=== PATIENT | male | born 1970 | race Caucasian/White ===

== ENCOUNTER 2020-11-02 16:15 | Emergency (ER) | payer MEDICARE, OTHER ==
[~2020-11-02 16:15] MED LIST: AURYXIA210 MG PO; CIPRO500 MG PO; FOSRENOL1000 MG PO; LACTINEX1 EACH PO; METOPROLOL TART50 MG PO; METRONIDAZOLE500 MG PO; RENAL CAPS SOFTG1 MG PO; ROCALTROL 0.0.25 MCG PO; TUMS200 MG PO
== END 2020-11-02 17:47 | disposition home or self-care (01) ==
LOC: FER 16:15
DX: S92.351A Displaced fracture of fifth metatarsal bone, right foot, initial encounter for closed fracture (principal); I12.0 Hypertensive chronic kidney disease with stage 5 chronic kidney disease or end stage renal disease; N18.6 End stage renal disease; Z79.899 Other long term (current) drug therapy; X58.XXXA Exposure to other specified factors, initial encounter; Y92.009 Unspecified place in unspecified non-institutional (private) residence as the place of occurrence of the external cause
CPT/HCPCS: 73630

== ENCOUNTER 2020-12-30 11:00 | Emergency (ER) | payer MEDICARE, OTHER ==
[2020-12-30 11:58] LABS: BASOPHIL 0.4 % (0-2); EOSINOPHIL 2.9 % (0-5); HCT 49.4 % (42.0-52.0); HGB 15.7 g/dl (13.2-18.0); MCH 30.7 pg (25.0-31.0); MCHC 31.8 g/dL (32.0-36.0); MCV 96.5 fL (78.0-100.0); MONOCYTE 3.5 % (0-12); MPV 9.9 fL (6.0-9.5); NEUTROPHIL 81.9 % (41-80); NRBC 0; PLT 203 K/uL (150-400); RBC 5.12 M/uL (4.70-6.00); RDW 16.1 % (11.5-14.0); WBC 12.4 K/uL (4.0-10.5)
[2020-12-30 12:40] LABS: INR 1.13 (0.9-1.2); PROTHROMBIN TIME 13.8 SECONDS (11.4-13.6); PTT 40.2 SECONDS (22.2-34.7)
[2020-12-30 13:20] LABS: BILIRUBIN - TOTAL 0.4 mg/dL (0.2-1.0); CREATININE 15.07 mg/dL (0.67-1.17); GLOBULIN (CALCULATION) 3.7 g/dL; POTASSIUM 4.5 mmol/L (3.5-5.1); TOTAL PROTEIN 6.7 g/dL (6.4-8.2)
== END 2020-12-30 19:52 | disposition other institution (70) ==
LOC: FER 11:00
PROVIDERS: Emergency Medicine
DX: R07.9 Chest pain, unspecified (principal); R06.02 Shortness of breath; I25.10 Atherosclerotic heart disease of native coronary artery without angina pectoris; I12.0 Hypertensive chronic kidney disease with stage 5 chronic kidney disease or end stage renal disease; N18.6 End stage renal disease; F17.210 Nicotine dependence, cigarettes, uncomplicated; Z95.5 Presence of coronary angioplasty implant and graft; Z88.1 Allergy status to other antibiotic agents; Z91.041 Radiographic dye allergy status; Z79.899 Other long term (current) drug therapy; Z79.82 Long term (current) use of aspirin; Z20.822 Contact with and (suspected) exposure to COVID-19
CPT/HCPCS: 36415; 71045; 80053; 84484; 85025; 85610; 85730; 93005; U0002

== ENCOUNTER 2021-08-02 15:39 | Emergency (ER) | payer MEDICARE, OTHER ==
[2021-08-02 16:36] LABS: BASOPHIL 0.4 % (0-2); HCT 48.9 % (42.0-52.0); HGB 15.1 g/dl (13.2-18.0); LYMPHOCYTE 17.3 % (15-48); MCHC 30.9 g/dL (32.0-36.0); MCV 90.6 fL (78.0-100.0); MONOCYTE 6.9 % (0-12); MPV 10.8 fL (6.0-9.5); NEUTROPHIL 71.2 % (41-80); NRBC 0; PLT 154 K/uL (150-400); RDW 15.6 % (11.5-14.0); WBC 8.2 K/uL (4.0-10.5)
[2021-08-02 17:00] LABS: ALBUMIN 3.7 g/dL (3.4-5.0); BILIRUBIN - TOTAL 0.6 mg/dL (0.2-1.0); BUN/CREAT RATIO (CALC) 2.8 RATIO; CREATININE 11.27 mg/dL (0.67-1.17); GLOBULIN (CALCULATION) 4.3 g/dL; POTASSIUM 4.5 mmol/L (3.5-5.1)
== END 2021-08-02 23:05 | disposition home or self-care (01) ==
LOC: FER 15:39
PROVIDERS: Internal Medicine
DX: R19.7 Diarrhea, unspecified (principal); N18.6 End stage renal disease; F17.200 Nicotine dependence, unspecified, uncomplicated; Z88.1 Allergy status to other antibiotic agents; Z91.041 Radiographic dye allergy status; Z99.2 Dependence on renal dialysis; Z20.822 Contact with and (suspected) exposure to COVID-19
CPT/HCPCS: 36415; 80053; 85025; 99284; J7030; J7040; U0002

== ENCOUNTER 2022-05-13 09:18 | Emergency (ER) | payer OTHER ==
[2022-05-13 10:05] LABS: BASOPHIL 0.4 % (0-2); EOSINOPHIL 4.3 % (0-5); HCT 48.3 % (42.0-52.0); HGB 16.4 g/dl (13.2-18.0); LYMPHOCYTE 16.1 % (15-48); MCH 32.1 pg (25.0-31.0); MCV 94.5 fL (78.0-100.0); MONOCYTE 8.9 % (0-12); MPV 10.5 fL (6.0-9.5); NRBC 0; PLT 188 K/uL (150-400); RBC 5.11 M/uL (4.70-6.00); RDW 14.4 % (11.5-14.0); WBC 7.5 K/uL (4.0-10.5)
[2022-05-13 10:15] LABS: INR 1.08 (0.9-1.2); PROTHROMBIN TIME 13.7 SECONDS (11.9-13.9); PTT 31.9 SECONDS (24.9-34.6)
[2022-05-13 10:39] LABS: ALBUMIN 3.9 g/dL (3.4-5.0); BILIRUBIN - TOTAL 0.7 mg/dL (0.2-1.0); BUN/CREAT RATIO (CALC) 3.3 RATIO; CREATININE 12.96 mg/dL (0.67-1.17); GLOBULIN (CALCULATION) 3.9 g/dL; MAGNESIUM 2.1 mg/dL (1.8-2.4); POTASSIUM 4.1 mmol/L (3.5-5.1); TOTAL PROTEIN 7.8 g/dL (6.4-8.2)
[2022-05-13 10:40] LABS: CORONAVIRUS 2019 SARS-COV-2 NEGATIVE (NEGATIVE); INFLUENZA A NAA NEGATIVE (NEGATIVE)
[2022-05-13] MEDS ORDERED: CIPRO500 M1 PO (12:10)
[2022-05-13] MEDS ORDERED: METRONIDAZOLE500 MG PO (12:10)
[2022-05-13] MEDS ORDERED: ONDANSETRON ODT4 MG PO (12:11)
[2022-05-13] MEDS ORDERED: PHENERGAN25 M1 PO (12:11)
[2022-05-13] MEDS ORDERED: NORCO 5-325 TA1 EACH PO (12:11)
== END 2022-05-13 13:08 | disposition home or self-care (01) ==
LOC: FER 09:18
PROVIDERS: Internal Medicine
DX: K52.9 Noninfective gastroenteritis and colitis, unspecified (principal); I12.0 Hypertensive chronic kidney disease with stage 5 chronic kidney disease or end stage renal disease; N18.6 End stage renal disease; F17.210 Nicotine dependence, cigarettes, uncomplicated; Z88.2 Allergy status to sulfonamides; Z88.1 Allergy status to other antibiotic agents; Z79.899 Other long term (current) drug therapy; Z91.041 Radiographic dye allergy status; Z20.822 Contact with and (suspected) exposure to COVID-19
CPT/HCPCS: 36415; 80053; 83690; 83735; 83880; 84145; 84484; 85025; 85610; 85730; 93005; J1170; J1885; J2405; J7040; U0002